=== PATIENT | male | born 1945 | race Caucasian/White ===

== ENCOUNTER 2016-12-06 15:16 | Emergency (ER) | payer MEDICAID ==
[~2016-12-06 15:16] MED LIST: DILA100C PO; HYDR2.5T PO; LANSO30 PO/TUBE
[2016-12-06 15:18] VITALS: BP 163/89; PULSE 89; RESP 15; TEMP 98.2; O2SAT 99
[2016-12-06 17:02] VITALS: BP 169/82; PULSE 64; RESP 16; O2SAT 99
[2016-12-06] MEDS ORDERED: HYDROmorphone HCL PF 1 MG/ML VIAL IVS ONE (17:30)
[2016-12-06] MEDS ORDERED: ONDANSETRON HCL 4 MG/2 ML VIAL IVP ONE (17:30)
--- NOTE | 2016-12-06 17:38 | PD ---
HPI Chief Complaint: Facial Pain or Swelling Time Seen by Provider: 17:00 Travel History International Travel<30 days: No Contact w/Intl Traveler<30days: No Traveled to known affect area: No History of Present Illness HPI The history and review of systems was obtained through a cokeman through the [facility] system. This is a 71-year-old male with a newly diagnosed history of left sided throat cancer and tumor, who presents here requesting pain medicines for his pain. The patient states that they have an appointment with a oncologist but are here solely to have a pain medicine prescription. The patient states that he's had several days of pain in his left lateral neck and left ear. He states he had presented complaining of spitting up scant blood. He was able to hold down thick liquids and water however was not able to hold down solids. He denies any fevers, chills. He reports mild nausea no vomiting. There is no diarrhea. There are no other symptoms reported. PFSH Past Medical History Diminished Hearing: No Gastrointestinal Disorders: Yes Hypertension: Yes Medical other: Yes (parotid CA) Seizures: Yes Tetanus Vaccination: Unknown Influenza Vaccination: No Past Surgical History Surgical History: No Previous Surgery Social History Alcohol Use: Yes (BEER DAILY) Tobacco Use: No Substance Use: No Allergies-Medications (Allergen,Severity, Reaction): Coded Allergies: No Known Allergies (Verified , 05/04/10) Reported Meds & Prescriptions Reported Meds & Active Scripts Active Lortab Liq (Hydrocodone-Acetaminophen Liq) 10-300 Mg/15 Ml Elix 15 Ml PO Q6H PRN Prevacid Solutab (Lansoprazole) 30 Mg Tab 30 Mg PO/TUBE DAILY Lortab 2.5/500 (Acetaminophen/Hydrocodone Bitart) Tab 1 Tab PO Q6HPRN FOR PAIN Reported Dilantin Kapseals (Phenytoin Sodium) 100 Mg Cap 300 Mg PO DAILY Review of Systems Except as stated in HPI: all other systems reviewed are Neg General / Constitutional: No: Fever HENT: Positive: Sore Throat, Neck Pain (left lateral neck from the ear to the throat.), No: Headaches, Vertigo, Neck Stiffness Cardiovascular: No: Chest Pain or Discomfort, Palpitations Respiratory: No: Cough, Shortness of Breath Gastrointestinal: Positive: Nausea, No: Vomiting, Abdominal Pain Musculoskeletal: No: Weakness, Pain Neurologic: Positive: Seizures (history of seizure disorder which he takes Dilantin 4.), No: Weakness, Dizziness, Headache Physical Exam Narrative GENERAL: Well-nourished, well-developed patient in no acute respiratory distress. SKIN: Focused skin assessment warm/dry. HEAD: Normocephalic. EYES: No scleral icterus. Left lid lag which is not new according to the family. NECK: Supple, trachea midline. Subjective tenderness in his left lateral submandibular area. No stridor noted. CARDIOVASCULAR: Regular rate and rhythm without murmurs, gallops, or rubs. RESPIRATORY: Breath sounds equal bilaterally. No accessory muscle use. GASTROINTESTINAL: Abdomen soft, non-tender, nondistended. MUSCULOSKELETAL: No cyanosis, or edema. NEUROLOGICAL: Awake and alert. Cranial nerves II through XII intact. Motor grossly within normal limits. Five out of 5 muscle strength in all muscle groups. Normal speech. Data Data Last Documented VS Vital Signs Date Time Temp Pulse Resp B/P Pulse Ox O2 Delivery O2 Flow Rate FiO2 12/06/16 17:02 64 16 169/82 99 Room Air 12/06/16 15:18 98.2 Orders Complete Blood Count With Diff (12/06/16 17:26) Basic Metabolic Panel (Bmp) (12/06/16 17:26) Ondansetron Inj (Zofran Inj) (12/06/16 17:30) Hydromorphone Pf Inj (Dilaudid Pf Inj) (12/06/16 17:30) Potassium Chloride Eff (K-Lyte Cl Eff) (12/06/16 19:15) Labs Laboratory Tests Test 12/06/16 17:45 White Blood Count 7.4 TH/MM3 Red Blood Count 4.57 MIL/MM3 Hemoglobin 15.6 GM/DL Hematocrit 44.5 % Mean Corpuscular Volume 97.4 FL Mean Corpuscular Hemoglobin 34.2 PG Mean Corpuscular Hemoglobin 35.1 % Concent Red Cell Distribution Width 13.2 % Platelet Count 180 TH/MM3 Mean Platelet Volume 9.2 FL Neutrophils (%) (Auto) 61.3 % Lymphocytes (%) (Auto) 26.6 % Monocytes (%) (Auto) 8.7 % Eosinophils (%) (Auto) 2.4 % Basophils (%) (Auto) 1.0 % Neutrophils # (Auto) 4.5 TH/MM3 Lymphocytes # (Auto) 2.0 TH/MM3 Monocytes # (Auto) 0.6 TH/MM3 Eosinophils # (Auto) 0.2 TH/MM3 Basophils # (Auto) 0.1 TH/MM3 CBC Comment DIFF FINAL Differential Comment Sodium Level 133 MEQ/L Potassium Level 3.3 MEQ/L Chloride Level 97 MEQ/L Carbon Dioxide Level 29.1 MEQ/L Anion Gap 7 MEQ/L Blood Urea Nitrogen 11 MG/DL Creatinine 1.10 MG/DL Estimat Glomerular Filtration 66 ML/MIN Rate Random Glucose 85 MG/DL Calcium Level 8.8 MG/DL MDM Medical Decision Making Medical Screen Exam Complete: Yes Emergency Medical Condition: Yes Differential Diagnosis Pain control versus metabolic derangement versus anemia Narrative Course 71-year-old male recent diagnosis of tumor of the neck and esophagus, presents here requesting pain medication. Through the phlebotomy services representative, the patient does not wish to be admitted. He is here only for pain control. His laboratory tests are within normal limits except for potassium of 3.3. He's been given 25 mg of potassium oral times one dose. He'll be discharged with a prescription for Lortab elixir. He is instructed to follow up with the oncologist as previously scheduled at [facility]. Diagnosis Primary Impression: neck and throat pain. Additional Impressions: Head and neck cancer mild hypokalemia Additional Instructions: Follow up the oncologist as previously scheduled. Return if feeling worse. Eat potassium rich food. Med/Other Pt SpecificInfo: Prescription(s) given Scripts Hydrocodone-Acetaminophen Liq (Lortab Liq)10-300 Mg/15 Ml Elix15 Ml PO Q6H PRN ( PAIN) #180 ML Ref 0 Prov:Curtis Fernandez MD 12/06/16 Disposition: 01 DISCHARGE HOME Condition: Stable Curtis Fernandez MD Dec 06, 2016 17:38
[2016-12-06] MEDS ORDERED: HYDR1ELX PO (18:16)
[2016-12-06 18:59] LABS: AUTOMATED NEUTROPHIL # 4.5 TH/MM3 (1.8-7.7); BASOPHIL # 0.1 TH/MM3 (0-0.2); EOSINOPHIL # 0.2 TH/MM3 (0-0.4); EOSINOPHIL % 2.4 % (0.0-4.0); HEMATOCRIT 44.5 % (39.0-51.0); HEMO FLAGS DIFF FINAL; LYMPH % 26.6 % (9.0-44.0); MEAN CELL VOLUME 97.4 FL (80.0-100.0); MEAN CORPUSCULAR HEMOGLOBIN 34.2 PG (27.0-34.0); MEAN CORPUSCULAR HGB CONC 35.1 % (32.0-36.0); MONO % 8.7 % (0.0-8.0); NEUT % 61.3 % (16.0-70.0); PLATELET COUNT 180 TH/MM3 (150-450); RED BLOOD COUNT 4.57 MIL/MM3 (4.50-5.90); RED CELL DISTRIBUTION WIDTH 13.2 % (11.6-17.2); WHITE BLOOD COUNT 7.4 TH/MM3 (4.0-11.0)
[2016-12-06 19:12] LABS: BICARBONATE 29.1 MEQ/L (21.0-32.0); POTASSIUM 3.3 MEQ/L (3.5-5.1)
[2016-12-06] MEDS ORDERED: POTASSIUM CHLORIDE 25 MEQ EFFERVESCENT TAB PO ONE (19:15)
[2016-12-06 19:59] VITALS: BP 161/78
== END 2016-12-06 19:00 | disposition home or self-care (01) ==
LOC: NEPC 15:16
DX: M54.2 Cervicalgia (principal); R07.0 Pain in throat; E87.6 Hypokalemia; I10 Essential (primary) hypertension; C14.0 Malignant neoplasm of pharynx, unspecified
CPT/HCPCS: 80048; 85025; 96374; 96375; 99284; J1170; J2405